=== PATIENT | male | born 1975 | race Caucasian/White ===

== ENCOUNTER 2021-03-16 02:48 | Emergency (ER) | payer SELFPAY ==
[2021-03-16 02:50] VITALS: BP 190/118; PULSE 105; RESP 18; O2SAT 94; BMI 25.1
--- NOTE | 2021-03-16 03:38 | CTR_ITS ---
PROCEDURE INFORMATION: Exam: CT Head Without Contrast Exam date and time: 03/16/2021 3:38 AM Age: 45 years old Clinical indication: Other: Seizure; Additional info: Sz TECHNIQUE: Imaging protocol: Computed tomography of the head without contrast. Radiation optimization: All CT scans at this facility use at least one of these dose optimization techniques: automated exposure control; mA and/or kV adjustment per patient size (includes targeted exams where dose is matched to clinical indication); or iterative reconstruction. COMPARISON: No relevant prior studies available. RADIATION DOSE METRICS: Total DLP (mGy-cm): 868.86 FINDINGS: Brain: No hemorrhage. No edema, mass effect or midline shift. Cerebral ventricles: No ventriculomegaly. Paranasal sinuses: Visualized sinuses are unremarkable. No fluid levels. Mastoid air cells: No mastoid effusion. Bones/joints: No acute fracture. Soft tissues: Unremarkable. CT/CT head wo con* [id number] IMPRESSION: No acute intracranial abnormality.
[2021-03-16 03:45] LABS: Basophils % 0.7 %; Eosinophils # 0.1 10^3/uL (0.0-0.8); Hemoglobin 14.5 g/dL (11.7-16.6); Lymphocytes % 33.3 %; Mean Corpuscular HGB Conc 33.7 g/dL (30.0-36.0); Mean Corpuscular Hemoglobin 32.4 pg (28.0-34.0); Mean Platelet Volume 11.2 fL (7.4-10.4); Monocytes # 0.7 10^3/uL (0.2-0.9); Monocytes % 11.9 %; Neutrophils # 3.04 10^3/uL (1.8-7.7); Neutrophils % 51.9 %; Nucleated Red Blood Cells % 0 %; Platelet Count 204 10^3/cmm (130-400); Red Blood Count 4.48 10^6/uL (4.1-5.3); Red Cell Distribution Width 14.1 % (12.1-15.1); White Blood Count 5.9 10^3/uL (4.0-10.0)
[2021-03-16 03:54] LABS: Alanine Aminotransferase 63 U/L (0-41); Albumin Level 4.1 g/dL (3.5-5.2); Alkaline Phosphatase 129 IU/L (40-130); Anion Gap 15.7 (5-19); Aspartate Amino Transferase 36 U/L (0-40); Blood Urea Nitrogen 8 mg/dL (6-20); Carbon Dioxide 25 mmol/L (22-29); Chloride 102 mmol/L (98-107); Glucose 113 mg/dL (65-115); Magnesium 1.9 mg/dL (1.7-2.3); Osmolality Calculated 287 mOsm/kg (285-295); Potassium 3.7 mmol/L (3.5-5.1); Sodium 139 mmol/L (136-145); Total Bilirubin 0.3 mg/dL (0.15-1.2); Total Protein 8.1 g/dL (6.6-8.7)
[2021-03-16 04:05] LABS: Alcohol Level < 10 mg/dL (0-10)
[2021-03-16 04:28] VITALS: RESP 17
--- NOTE | 2021-03-17 23:25 | W.ED.SEIZURE ---
HPI - Seizure General: Chief Complaint: Seizure Stated Complaint: SEIZURE Time Seen by Provider: 03/16/21 03:05 History of Present Illness: HPI Narrative: 45yo male with a history of sz disorder here with up to 3 seizures. [facility] He states that he has missed a couple of Keppra doses. complaint: seizure Onset (ago): hour(s) Description of Episode: loss of consciousness and tonic-clonic movement Seizure History: Yes Place: law enforcement Associated symptoms: Reports confusion (afterward, improved now.) and weakness (generalized.); Deny chest pain or fever(s) Treatments prior to arrival: none Review of Systems Const: Denies: fever(s) Card: Denies: chest pain or palpitations Resp: Denies: dyspnea, productive cough or non-productive cough GI: Denies: abdominal pain, vomiting or diarrhea Neuro: Reports: confusion (afterward, improved now.) Physical Exam Const: COMMON NORMALS: no acute distress GENERAL APPEARANCE: lethargic (mildly); not ill appearing ORIENTATION/CONSCIOUSNESS: Yes awake, Yes oriented to person, Yes oriented to place, Yes oriented to time and Yes lethargic (mildly) HENMT: COMMON NORMALS: normocephalic, atraumatic, hearing grossly normal bilaterally and Normal external nose present HEAD & SCALP: normocephalic and atraumatic FACE & SINUS: normal facial exam and face symmetric NOSE: Normal external nose present Eye: COMMON NORMALS: Equal, round and reactive pupils present and EOMs intact bilaterally PUPIL: Yes Equal, round and reactive pupils present Chest: COMMONS NORMALS: normal inspection of the chest Resp: COMMON NORMALS: normal respiratory effort and clear to auscultation bilaterally AUSCULTATION: clear to auscultation bilaterally Cardio: COMMON NORMALS: regular rate and regular rhythm RATE: regular rate RHYTHM: regular rhythm GI: COMMON NORMALS: Normal to inspection, nondistended, normoactive bowel sounds present Neuro: SENSORIUM/ORIENTATION: Yes oriented to person, Yes oriented to place, Yes oriented to time and Yes lethargic (mildly) Course Vital Signs: Vital signs: Vital Signs Pulse Rate 105 H 03/16/21 02:50 Respiratory Rate 17 03/16/21 04:28 Blood Pressure 190/118 03/16/21 02:50 Pulse Oximetry 94 03/16/21 02:50 MDM - Seizure MDM Narrative: Medical decision making narrative: Seizure likely related to missed Keppra dose. Stress related to being in custody could be inciting event as well. Clinically recovering uneventfully. Labs and CT are benign. Loaded with keppra here and written prescriptions for further treatment. Will allow discharge. Lab Data: Labs: Lab Results 03/16/21 03/16/21 03:25 03:25 WBC 5.9 10^3/uL 10^3/ uL (4.0-10.0) RBC 4.48 10^6/uL 10^6 /uL (4.1-5.3) Hgb 14.5 g/dL g/dL (11.7-16.6) Hct 43.0 % % (42.0-52.0) MCV 96.0 fl H fl (80-94) MCH 32.4 pg pg (28.0-34.0) MCHC 33.7 g/dL g/dL (30.0-36.0) RDW 14.1 % % (12.1-15.1) Plt Count 204 10^3/cmm 10^3 /cmm (130-400) MPV 11.2 fL H fL (7.4-10.4) Neut % (Auto) 51.9 % % Lymph % (Auto) 33.3 % % [place] % (Auto) 11.9 % % Eos % (Auto) 2.0 % % Baso % (Auto) 0.7 % % Neut # (Auto) 3.04 10^3/uL 10^3 /uL (1.8-7.7) Lymph # (Auto) 2.0 10^3/uL 10^3/ uL (0.8-4.8) [place] # (Auto) 0.7 10^3/uL 10^3/ uL (0.2-0.9) Eos # (Auto) 0.1 10^3/uL 10^3/ uL (0.0-0.8) Baso # (Auto) 0.0 10^3/uL 10^3/ uL (0.0-0.1) Nucleated RBC % (a uto) 0 % % Nucleated RBCs # 0.0 /100WBC /100W BC Sodium 139 mmol/L mmol/L (136-145) Potassium 3.7 mmol/L mmol/L (3.5-5.1) Chloride 102 mmol/L mmol/L (98-107) Carbon Dioxide 25 mmol/L mmol/L (22-29) Anion Gap 15.7 (5-19) BUN 8 mg/dL mg/dL (6-20) Creatinine 0.8 mg/dL mg/dL (0.7-1.2) GFR Calculation 105.0 mL/min mL/m in (90-130) Glucose 113 mg/dL mg/dL (65-115) Calculated Osmolal ity 287 mOsm/kg mOsm/ kg (285-295) Calcium 9.0 mg/dL mg/dL (8.5-10.5) Magnesium 1.9 mg/dL mg/dL (1.7-2.3) Total Bilirubin 0.3 mg/dL mg/dL (0.15-1.2) AST 36 U/L U/L (0-40) ALT 63 U/L H U/L (0-41) Alkaline Phosphata se 129 IU/L IU/L (40-130) Total Protein 8.1 g/dL g/dL (6.6-8.7) Albumin 4.1 g/dL g/dL (3.5-5.2) Globulin 4.0 g/dL g/dL (1.3-4.6) Ethyl Alcohol < 10 mg/dL mg/dL (0-10) Discharge Plan Discharge Patient Disposition: Home Clinical Impression: Epileptic seizure Qualifiers: Epilepsy type: unspecified Condition: Stable Prescriptions: New Keppra 500 mg tablet 500 mg PO Q12H Qty: 60 RF: 0 omeprazole 20 mg tablet,delayed release (DR/EC) 20 mg PO DAILY Qty: 30 RF: 0 Discharge Orders: Discharge ED (Routine); Ordered 03/16/21 Ordered By: Ti High Referrals: Robert Scott FNP [Primary Care Provider] - Patient Instructions: Recurrent Seizures in Adults (ED) Activity Restrictions/Additional Instructions: Medications as directed. Return for repeated episodes of seizure despite treatment, significant mental status changes, lethargy, weakness, other concerning symptoms Coding Level of Care Code ED Commission Clerk for Misael Prasad
== END 2021-03-16 04:52 | disposition home or self-care (01) ==
PROVIDERS: Emergency Provider Emergency Medicine; PCP Nurse Practitioner Family
DX: G40.909 Epilepsy, unspecified, not intractable, without status epilepticus (principal)
CPT/HCPCS: 70450; 80053; 80307; 83735; 85025; 96365; 99283; J1953

== ENCOUNTER 2021-03-19 00:23 | Emergency (ER) | payer SELFPAY ==
--- NOTE | 2021-03-19 00:27 | CTR_ITS ---
PROCEDURE INFORMATION: Exam: CT Head Without Contrast Exam date and time: 03/19/2021 12:27 AM Age: 45 years old Clinical indication: Condition or disease; Convulsions or seizures; Additional info: Seizure TECHNIQUE: Imaging protocol: Computed tomography of the head without contrast. Radiation optimization: All CT scans at this facility use at least one of these dose optimization techniques: automated exposure control; mA and/or kV adjustment per patient size (includes targeted exams where dose is matched to clinical indication); or iterative reconstruction. COMPARISON: CT head wo con* [id number] 03/16/2021 3:45 AM RADIATION DOSE METRICS: Total DLP (mGy-cm): 971.65 FINDINGS: Brain: Normal. No hemorrhage. Unremarkable white matter. No mass effect. Cerebral ventricles: No ventriculomegaly. Paranasal sinuses: Visualized sinuses are unremarkable. No fluid levels. Mastoid air cells: Visualized mastoid air cells are well aerated. Bones/joints: Unremarkable. No acute fracture. Soft tissues: Unremarkable. CT/CT head wo con* [id number] IMPRESSION: No acute intracranial abnormality.
[2021-03-19 00:28] VITALS: BP 159/105; PULSE 84; RESP 18; TEMP 36.6; O2SAT 96; BMI 25.1
--- NOTE | 2021-03-19 00:30 | W.ED.SEIZURE ---
HPI - Seizure General: Chief Complaint: Seizure Stated Complaint: SEIZURES Time Seen by Provider: 03/19/21 00:25 Source: patient and EMS Mode of arrival: EMS Limitations: no limitations History of Present Illness: HPI Narrative: 45-year-old male is [facility] with a [facility]. He has a long history of seizures takes Keppra states has been in penitentiary since Tuesday and has been taking his Keppra there. Patient had one seizure tonight his found down in his room he does have a contusion to his head patient is unsure if he hit his head does not remember the events he is now awake and alert now answering all my questions appropriately seizure happened roughly 45 minutes ago EMS states that he originally was postictal but now he is awake back to his baseline Seizure History: Yes Associated symptoms: Deny chest pain, chills or fever(s) Review of Systems Const: Denies: fever(s), chills, body aches or change in appetite Eyes: Denies: blurry vision or eye discomfort ENMT: Denies: throat pain or dental pain Card: Denies: chest pain Resp: Denies: dyspnea GI: Denies: abdominal pain, nausea, vomiting or diarrhea : Denies: dysuria Musc: Denies: neck pain or back pain Skin/Breast: Denies: rash Neuro: Reports: seizure-like activity Psych: Denies: depression Jalen/Lymph: Denies: easy bruising All/Imm: Denies: urticaria Physical Exam Const: COMMON NORMALS: no acute distress, patient oriented x3 and healthy appearing HENMT: COMMON NORMALS: normocephalic HEAD & SCALP: normocephalic FACE & SINUS IMAGES: 1. contusion Eye: COMMON NORMALS: Equal, round and reactive pupils present and EOMs intact bilaterally PUPIL: Yes Equal, round and reactive pupils present Neck/C-Spine: COMMON NORMALS: full ROM and supple Chest: COMMONS NORMALS: normal inspection of the chest and normal palpation of entire chest wall Resp: COMMON NORMALS: normal respiratory effort, No retractions, No use of accessory muscles and clear to auscultation bilaterally AUSCULTATION: clear to auscultation bilaterally Cardio: COMMON NORMALS: regular rate, regular rhythm and No murmurs present (Cardio) RATE: regular rate RHYTHM: regular rhythm GI: COMMON NORMALS: Normal to inspection, nondistended, normoactive bowel sounds present, Soft to palpation, non-tender and no masses PALPATION: Yes Soft to palpation Extremity: COMMON NORMALS: normal to inspection and full ROM Neuro: COMMON NORMALS: patient oriented x3, moves all extremities and no focal motor deficits Psych: COMMON NORMALS: mental status grossly normal, Normal thought process present and cooperative THOUGHT PROCESS: Normal thought process present Skin: COMMON NORMALS: no rashes or lesions noted and no wounds GENERAL SKIN EXAM: no rashes or lesions noted Course Vital Signs: Vital signs: Vital Signs Temperature 97.9 F 03/19/21 00:28 Pulse Rate 115 H 03/19/21 01:15 Respiratory Rate 18 03/19/21 01:15 Blood Pressure 135/74 03/19/21 01:15 Pulse Oximetry 98 03/19/21 01:15 MDM - Seizure MDM Narrative: Medical decision making narrative: Patient presents here after a seizure he has been well-appearing here back to baseline head CT is normal he has a long history of seizures he stable for discharge back to [facility] form he needs to take his meds as prescribed follow-up PCP and return if worsening. Imaging Data^: CT Head: Attestation: I personally reviewed and interpreted this imaging study as follows: Radiologist's impression: [address] [address] [address] Scan Report Signed Patient: Grant Purvis Unit #: [id number] : 1975 Age/Sex: 45 / M ADM Date: 03/19/21 Loc: ER Room/Bed: Attending Dr: Ordering Provider/Ordering MD: Hesham Felix MD Date of Service: 03/19/21 Procedure(s): CT head wo con* [id number] Accession Number(s): [id number] Report Number: [id number] PROCEDURE INFORMATION: Exam: CT Head Without Contrast Exam date and time: 03/19/2021 12:27 AM Age: 45 years old Clinical indication: Condition or disease; Convulsions or seizures; Additional info: Seizure TECHNIQUE: Imaging protocol: Computed tomography of the head without contrast. Radiation optimization: All CT scans at this facility use at least one of these dose optimization techniques: automated exposure control; mA and/or kV adjustment per patient size (includes targeted exams where dose is matched to clinical indication); or iterative reconstruction. COMPARISON: CT head wo con* [id number] 03/16/2021 3:45 AM RADIATION DOSE METRICS: Total DLP (mGy-cm): 971.65 FINDINGS: Brain: Normal. No hemorrhage. Unremarkable white matter. No mass effect. Cerebral ventricles: No ventriculomegaly. Paranasal sinuses: Visualized sinuses are unremarkable. No fluid levels. Mastoid air cells: Visualized mastoid air cells are well aerated. Bones/joints: Unremarkable. No acute fracture. Soft tissues: Unremarkable. CT/CT head wo con* [id number] IMPRESSION: No acute intracranial abnormality. Dictated By: Rasheed Aguilar Signed By: Rasheed Aguilar Signed Date/Time: 03/19/21104 DD/ Discharge Plan Discharge Patient Disposition: Home Clinical Impression: Generalized seizure Condition: Stable Prescriptions: No Action Keppra 500 mg tablet 500 mg PO Q12H Qty: 60 RF: 0 omeprazole 20 mg tablet,delayed release (DR/EC) 20 mg PO DAILY Qty: 30 RF: 0 Discharge Orders: Discharge ED (Routine); Ordered 03/19/21 Ordered By: Hesham Felix Referrals: Robert Scott FNP [Primary Care Provider] - Discharge Diet: Advance as tolerated Discharge Activity: Resume usual activity Patient Instructions: Generalized Tonic Clonic Seizures (ED) Coding Level of Care Code ED Sql Server Dba Developer for Thomasg Fwd Exam Comprehensive
[2021-03-19] MEDS: LORazepam 2 mg/mL INJ 1 mL IM (00:38)
[2021-03-19 01:15] VITALS: BP 135/74; PULSE 115; RESP 18; O2SAT 98
== END 2021-03-19 01:16 | disposition home or self-care (01) ==
PROVIDERS: Emergency Provider Emergency Medicine; PCP Nurse Practitioner Family
DX: G40.409 Other generalized epilepsy and epileptic syndromes, not intractable, without status epilepticus (principal)
CPT/HCPCS: 70450; 96372; 99283; J2060

== ENCOUNTER 2021-03-19 11:41 | Emergency (ER) | payer SELFPAY ==
[2021-03-19 11:43] VITALS: BP 159/101; PULSE 88; RESP 14; TEMP 36.9; O2SAT 96; BMI 25.1
--- NOTE | 2021-03-19 12:10 | ED_ITS ---
HPI - General Adult General: Chief complaint: Seizure Stated complaint: SEIZURE Time Seen by Provider: 03/19/21 11:44 History of Present Illness: HPI narrative: HPI: [45]yo patient w/ hx of epilespy on keppra non-compliant with meidcine BIBA to the ED with breakthrough episode of the seizure 20 minutes ago/ The incident was witnessed by court staff. On arrival, patient was back to baseline. HDS without any signs of focal neurological deficits. On arrival, the patient is AAOx3, GCS of 15 and answering all questions. The patient denies any associated chest pain, shortness of breath, palpitations, or any focal pain in the arms and legs. Last time breakthr ough seizure occurred earlier this morning at 12am Onset: [30] minutes ago Duration: x1 episode Location: home Severity: moderate Review of Systems Narrative: Constitutional: No fever, no chills. HEENT: No vision changes CV: No chest pain, no palpitations PULM: No productive cough, no dyspnea. GI: No abdominal pain, no N/V/D. : No Dysuria MSKEL: No muscle pain SKIN: No new rashes, no lesions. NEURO: No headache, no focal weakness. + 1 episode of seizure HEME: No visible bruises PSYCH: Normal mood Physical Exam Narrative: EXAM NARRATIVE: Head: Atraumatic Eyes: PERRL, conjunctiva without injection, eyes tracking ENT: Mucous membrane moist NECK: Supple without lymphadenopathy LUNGS: LCTAB CV: RRR ABDOMEN: Soft, nontender in all quadrants, no guarding or rebound tenderness, no CVA or flank tenderness bilaterally EXTREMITY: Normal ROM SKIN: No rash or erythema NEURO: CN II-XII tested and intact. Sensation intact to sharp/dull differentiation in all extremities. Motor: Normal tone and bulk. No abnormal movements appreciated. No pronator drift. Strength tested and 5/5 in bilateral wrist flexion/extension, elbow flexion/extension, shoulder abduction, straight leg raise, knee flexion/extension, ankle dorsiflexion/plantarflexion. Patient ambulates with a steady gait. Coordination: Finger to nose and heel to sorensen testing intact bilaterally. Reflexes intact in the ankles, knees, and elbows bilaterally PSYCH: Cooperative mood and affect Course Vital Signs: Vital signs: Vital Signs Temperature 98.5 F 03/19/21 11:43 Pulse Rate 88 03/19/21 11:43 Respiratory Rate 14 03/19/21 11:43 Blood Pressure 159/101 03/19/21 11:43 Pulse Oximetry 96 03/19/21 11:43 MDM - General Adult MDM Narrative: Medical decision making narrative: [45]yo patient w/ known hx of seizure on keppra who was recently earlier this AM for seizure in shelter BIBA after an episode of seizure in court [place]. Back to baseline on arrival, AAOX3 with non-focal neuro exam. +Fall. HDS. Exam revealed no focal trauma/deformity/bruises.The episode of seizure was witnessed and without any trauma/injury to the head. No immunosuppression hx and without preceding fever. No history of alcohol abuse or suspicion for toxin ingestion. Hx of prior seizure likely breakthrough seizure in the setting of medication change/non- compliance. H No lips/tongue lacerations. No visible bowel/bladder incontinence Airway protected. No drooling. Sats > 95%. Unlikely to be stroke, neurogenic syncope, acute delirium, intracranial tumor/mass, intracranial bleed, SAH/subdural hematoma/epidural hematoma, meningitis, or intracranial abscess, or from alcohol withdrawal. Workup: CBC, BMP, Magnesium, EKG CT brain ED Interventions: 1g of keppra, PO challenge, serial reassessment EKG: No e/o STEMI. No evidence of Brugada?s sign, delta wave, epsilon wave, significantly prolonged QTc, or malignant arrhythmia. [1:03pm] On reassessment, patient back to baseline. In the ED, the patient received 1g of keppra in the ED. No other witnessed episodes of seizure while the patient was observed in the ED. Repeat neuro exam is non-focal. Patient takes keppra 500mg BID for his seizures and tells me the seizure is likely secondary to medication non-compliance. Patient tolerated PO in the ED and was able to ambulate without difficulties. Unlikely to be alternative causes of seizures since the patient has no hx of immunosuppression, no recent fevers, no recent abx/BEHAVIORAL INSTRUCTOR shunt, no recent toxic exposure, no unilateral or focal weakness, or trauma. Patient elects to leave against medical advice prior full evaluation including blood work and imaging studies. Patient electing to leave AMA. Patient counseled regarding risks of leaving including severe morbidity, brain , hypoxia, arrythmia, , refractory seizure, or any other unwanted consequences of leaving against medical advice today. Patient verbalizes understanding of the risks and still wishes to leave AMA. Signed AMA paperwork. Patient advised that patient is welcome to return at any time. Was instructed that patient may come back if symptoms continue to persist and that emergent adverse conditions have not fully been ruled out. Patient is A&Ox3 and has capacity and is of sound mind to make decisions. Disposition: AMA Lab Data: Labs: Lab Results 03/19/21 12:04 Urine Color Yellow (Yellow) Urine Appearance Clear (CLEAR) Urine pH 7 (5-7) Ur Specific Gravit y 1.000 L (1.005-1.030) Urine Protein Neg (Negative) Urine Glucose (UA) Norm (Normal) Urine Ketones Negative (Negative) Urine Blood Neg (Negative) Urine Nitrate Negative (Negative) Urine Bilirubin Neg (Negative) Urine Urobilinogen Norm mg/dL mg/dL (Negative) Ur Leukocyte [place] Negative (Negative) Discharge Plan Discharge Patient Disposition: Left Against Medical Advice Clinical Impression: Generalized seizure Condition: Stable Prescriptions: No Action Keppra 500 mg tablet 500 mg PO Q12H Qty: 60 RF: 0 omeprazole 20 mg tablet,delayed release (DR/EC) 20 mg PO DAILY Qty: 30 RF: 0 Referrals: Robert Scott FNP [Primary Care Provider] - Discharge Diet: Advance as tolerated Discharge Activity: Increase activity as tolerated Activity Restrictions/Additional Instructions: Please do not operate heavy machinery, bathe, drive, or do any activities unattended. Coding Level of Care Code ED 4 H Youth Development Specialist for Misael Prasad
--- NOTE | 2021-03-19 12:11 | ECG_ITS ---
[facility] Test Date: 2021-03-19 Pat Name: Grant Purvis Department: Room: Gender: Male Vocational Nurse: : 1975 Requested By: Kenzie Shah Order Number: [id number] Yuri MD: Trung Ellison M.D. Measurements Intervals [place] Rate: 84 P: 28 ND: 142 QRS: 23 QRSD: 118 T: 43 QT: 366 QTc: 434 Interpretive Statements SINUS RHYTHM MODERATE INTRAVENTRICULAR CONDUCTION DELAY [110+ ms QRS DURATION] Compared to ECG 10/23/2017 22:04:35 Intraventricular conduction delay now present Electronically Signed On 03-19-2021 22:06:36 KNIFE SETTER ASSEMBLER by Trung Ellison M.D. [id number]
[2021-03-19 12:14] LABS: Add Urine Microscopic? NO; Charge for UA Resulting for Rev
[2021-03-19 12:29] LABS: Bilirubin Urine Neg (Negative); Blood Urine Neg (Negative); Glucose Urine UA Norm (Normal); Ketones Urine Negative (Negative); Leukocyte Esterase Urine Negative (Negative); Nitrate Urine Negative (Negative); Protein Urine Neg (Negative); Urine Appearance Clear (CLEAR); Urine Color Yellow (Yellow); Urobilinogen Urine Norm (Negative); pH Urine 7 (5-7)
== END 2021-03-19 13:00 | disposition left against medical advice (07) ==
PROVIDERS: Emergency Provider Emergency Medicine; PCP Nurse Practitioner Family
DX: G40.409 Other generalized epilepsy and epileptic syndromes, not intractable, without status epilepticus (principal); Z53.21 Procedure and treatment not carried out due to patient leaving prior to being seen by health care provider
CPT/HCPCS: 81003; 93005; 99283

== ENCOUNTER → 2021-12-30 15:27 | Outpatient (BNVA) | payer BC, SELFPAY | PROVIDERS: PCP Nurse Practitioner Family; Visit Provider Psychiatry & Neurology Psychiatry | DX: F25.0 Schizoaffective disorder, bipolar type (principal); F41.1 Generalized anxiety disorder; Z79.899 Other long term (current) drug therapy; F19.20 Other psychoactive substance dependence, uncomplicated | CPT/HCPCS: 80053; 80061; 83036; 84443; 85025 ==